=== PATIENT | female | born 1975 | race Caucasian/White ===

== ENCOUNTER 2016-08-27 10:51 | Day surgery (SDC) | payer OTHER, BC ==
--- NOTE | 2016-08-25 09:27 | HP ---
Admitting History and Physical - Primary Care Physician PCP: Germania Marin - Admission Chief Complaint: right breast mass History of Present Illness: 41 yo female presents with a right breast mass (previously bxed and c/w fibroadenoma 7 yrs ago) that has increased in size. Recent US and mammo c/w right breast mass which has increased in size from 1.3-3.1 cm. Patient is now presenting for exc bx of this right breast mass. History Source: Patient Limitations to Obtaining History: No Limitations - Past Medical History Gastrointestinal: Yes: Ulcerative Colitis Home Medications - Allergies Allergies/Adverse Reactions: Allergies Allergy/AdvReac Type Severity Reaction Status Date / Time Penicillins Allergy Verified 08/25/16 09:26 Sulfa (Sulfonamide Allergy Verified 08/25/16 09:27 Antibiotics) - Home Medications Home Medications (free text): Remicade. Xanax Family Disease History - Family Disease History Family Disease History: CA: Grandparent (pat GM breast cancer and pat GF pancreatic cancer) Review of Systems - Review of Systems Breasts: reports: See HPI Psychiatric: reports: Anxiety Physical Examination Constitutional: Yes: Well Nourished Breast(s): Yes: Other (Breasts are symmetrical without skin changes or nipple discharge. Breasts are diffusely nodular and dense. Right 2 oclock 3 cm smooth mass noted on palpation. No suspicious adenopathy noted bilaterally) Problem List - Problems (1) Mass of right breast Code(s): N63 - UNSPECIFIED LUMP IN BREAST Assessment/Plan Plan: Excisional bx of right breast mass
[2016-08-25 13:39] VITALS: BMI 21.1
[2016-08-27] MEDS ORDERED: BUPIVACAINE HCL/PF 2.5 MG/ML - 30 ML VIAL IJ ONE (11:49)
[2016-08-27] MEDS ORDERED: KETOROLAC TROMETHAMINE 30 MG/1 ML VIAL IVPUSH PRN (13:00)
[2016-08-27] MEDS ORDERED: DEXTROSE 5%-0.45% SALINE 1,000 ML IV SCH (13:00)
[2016-08-27] MEDS ORDERED: ONDANSETRON 4 MG/2 ML VIAL IVPB PRN (13:34)
[2016-08-27 14:06] VITALS: TEMP 98.9
[2016-08-27 14:12] VITALS: BP 115/75; PULSE 64
--- NOTE | 2016-08-30 13:43 | PATH ---
Surgical Pathology Report Patient Name: ISHAAN DORADO [facility]. Rec. #: [id number] /Age/Gender: 1975 (Age: 41) / F Account: [id number] Location: [facility] Taken: 08/27/2016 Received: 08/27/2016 Reported: 08/30/2016 Physicians: Germania Marin M.D. Specimen(s) Received RIGHT BREAST MASS Clinical History Palpable mass Enlarging right breast mass Final Diagnosis BREAST, RIGHT, MASS, EXCISION: FIBROADENOMA. Electronically Signed Catalina Paz M.D. Gross Description Received in formalin, labeled "right breast mass," is a 3.2 x 2.4 x 1.5 cm gr-yellow, ovoid, unoriented rubbery mass. There is no needle localization wire present. There is no skin present. The specimen is inked green and serially sectioned. Sectioning reveals homogeneous gr, rubbery parenchyma. No areas of hemorrhage or necrosis are identified. The specimen is entirely and sequentially submitted in 7 cassettes. Time to formalin fixation: 5 minutes Total formalin fixation time: Approximately 9 hours. 08/27/201608/27/2016
--- NOTE | 2016-10-25 21:32 | OP ---
DATE OF OPERATION: 08/27/2016 PREOPERATIVE DIAGNOSIS: Right breast mass. POSTOPERATIVE DIAGNOSIS: Right breast mass. PROCEDURE: Right breast wide excision. ANESTHESIA: Local. ATTENDING SURGEON: Germania Marin MD ESTIMATED BLOOD LOSS: Minimal. COMPLICATIONS: None. PROCEDURE: Patient was made aware of the risks and benefits of the procedure and consented. She was placed in a supine position. After IV sedation was administered, the operative site was prepped and draped in the usual sterile fashion. Lidocaine 1% was used for local anesthesia. A curvilinear incision was made using blunt and sharp dissection. Tissues were dissected down to the mass, which was bluntly and sharply excised and submitted for Pathology. The wound was copiously irrigated with normal saline, hemostasis maintained by electrocautery. The wound was then closed with deep 3-0 Vicryl followed by running subcuticular 4-0 Monocryl. Steri-Strips and sterile bandage was applied and the patient, having tolerated the procedure well, was transferred to the recovery room in excellent condition. GERMANIA MARIN M.D. DANIEL/[id number]
== END 2016-08-27 14:30 | disposition home or self-care (01) ==
LOC: FASU 10:51
PROVIDERS: ATTEND Surgery Surgical Oncology
PROC: 0HBT0ZX Excision of Right Breast, Open Approach, Diagnostic (ICD-10-PCS; principal; 2016-08-27 12:30)
DX: D24.1 Benign neoplasm of right breast (principal)
CPT/HCPCS: 84703; 88307-TC